=== PATIENT | male | born 2000 | race Caucasian/White ===

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

== ENCOUNTER 2025-05-07 19:38 | Emergency (ER) | payer SELFPAY ==
--- OUTSIDE RECORDS SUMMARY | 2015-03-19 05:22 | XMS_ITS | Continuity of Care Document ---
Author Organization [facility] Address [address] [place] [address] [place] [address] Phone Care Team Providers Care Clinical Data Management Director Name Role Phone Haylie Salinas MD, Alisa Unavailable Unavailable Allergies, Adverse Reactions, Alerts Substance Reaction Status Criticality No Known Allergies Active No Inform ation Medications Medication Instructions Dosage Effective Dates (start - stop) Status Comments No Drug Therapy Prescribed Procedures Procedure Date Im admin 1st/only component No Charge Advance Directives Directive Yes / No Effective Date File Name No Information Encounters Encounter Description Practice Location Reason(s) For Visit Diagnoses Date Provider Providers Copied on Encounter [facility], [address] [place] [address] [place], [id number], [place] tel:[phone] [facility] Vaccine for unspecified combined diseases [address]. [address] [address], [place], [place], [id number], [place]. tel:[phone] Family History Family Member Type Diagnosis Age At Onset No Information Immunizations Vaccine Date Status Comments Meningococcal MCV4O administered Source: New Immunization Record Payers Payer name Insurance type Covered green party ID Authoriza tion(s) No Information Social History Type Description Quantity Date Captured Comments Alcohol Use Details Unknown Caffeine Use Details Unknown Tobacco Use Status No Information Smoking Status No Information Sex Male Vital Signs Date / Time: Height Weight BMI Pulse Rate Blood Pressure Temperature Respiratory Rate Body Surface Area Head Circumference Head Circ. Percentile Wt./Demetri. Percentile BMI percentile Pulse Ox Inhaled Ox 9:29 AM 97.60 F Chief Complaint And Reason For Visit No Information Reason For Referral Reason For Referral No Information History Of Present Illness Encounter Date Complaint History Of Prese nt Illness No Information Functional Status Date Functional Assessmen t No Information Medications Administered Medication Instructions Dosage Effective Dates (start - stop) Status Comments No Drug Therapy Prescribed Instructions Date Instruction Additional Infor mation No Information Assessments Type Assessment Date assessment Vaccine for unspecified combined diseases impression MCV4 Patient Care Teams Name Effective Dates (start - stop) Status Members No Information
--- NOTE | 2025-05-07 19:56 | PC.NURSE ---
name called at this time not in lobby.
[2025-05-07 20:06] VITALS: BP 118/73; PULSE 80; RESP 24; TEMP 36.6; O2SAT 100; BMI 18.2
[2025-05-07 20:20] LABS: Microscopic, Urine URINE MICROSCOPIC (MICROSCOPIC)
[2025-05-07 20:21] LABS: Color,Urine RED (Yellow); Glucose,Urine (UA) Negative (Negative); Ketones,Urine 2+ (Negative); Leukocyte Esterase,Urine TRACE (Negative); PH,Urine 6.5 (5.0-8.5); Protein,Urine 2+ (Negative); Specific Gravity, Urine 1.020 (1.005-1.030); Urobilinogen,Urine 1.0 EU/dl (0.2)
--- NOTE | 2025-05-07 20:26 | CT_ITS ---
PROCEDURE INFORMATION: Exam: CT Abdomen And Pelvis With Contrast Exam date and time: 05/07/2025 8:58 PM Age: 24 years old Clinical indication: Abdominal pain; Flank; Right; Additional info: Right flank pain TECHNIQUE: Imaging protocol: Computed tomography of the abdomen and pelvis with contrast. Radiation optimization: All CT scans at this facility use at least one of these dose optimization techniques: automated exposure control; mA and/or kV adjustment per patient size (includes targeted exams where dose is matched to clinical indication); or iterative reconstruction. Contrast material: ISOVUE; Contrast volume: 75 ml; Contrast route: IV; COMPARISON: No relevant prior studies available. FINDINGS: Liver: Unremarkable. No mass. Gallbladder and biliary ducts: Unremarkable. No calcified stones. No ductal dilation. Pancreas: Unremarkable. No ductal dilation. Spleen: Unremarkable. No splenomegaly. Adrenal glands: Unremarkable. No mass. Kidneys and ureters: Anatomic variant horseshoe kidney. 0.3 cm nonobstructive renal calculus in left moiety. No hydronephrosis. Stomach and bowel: Nonobstructive pattern. Appendix: No evidence of appendicitis. Intraperitoneal space: Unremarkable. No free air. No significant fluid collection. Vasculature: Unremarkable. No abdominal aortic aneurysm. Lymph nodes: Shotty mesenteric lymph nodes with blair mesenteric fat stranding. Urinary bladder: Unremarkable as visualized. Reproductive: Unremarkable as visualized. Bones/joints: Unremarkable. No acute fracture. Soft tissues: Unremarkable. IMPRESSION: 1. Mesenteric panniculitis/lymphangitis. 2. Nonobstructive renal calculus in left horseshoe kidney moiety.
[2025-05-07 20:32] LABS: Hematocrit 42.6 % (42.0-52.0); Hemoglobin 15.0 g/dL (14.1-18.0); Immature Granulocytes % 0.3 %; Mean Corpuscular HGB Conc 35.2 g/dL (31.8-35.4); Mean Corpuscular Hemoglobin 30.1 pg (27.0-31.2); Mean Corpuscular Volume 85.5 fl (80-94); Nucleated Red Blood Cells % 0 %; Platelet Count 290 K/mm3 (142-424); Red Blood Count 4.98 M/mm3 (4.60-6.20); Red Cell Distribution Width-SD 38.1 fL; White Blood Count 11.2 K/mm3 (4.8-10.8)
--- NOTE | 2025-05-07 20:32 | ED_ITS ---
<Statement entered by Blanca Lozoya DO - 05/08/25 01:11> I was consulted by the WAGNER, and we discussed the complexity of problems being addressed. I approve the treatment and management plan for this patient's care in the emergency department, thus performing a substantial portion of the medical decision making. Blanca Lozoya DO Discharge Plan Disposition Patient Disposition: Home, Self-Care Prescriptions Prescriptions: New ketorolac 10 mg tablet 10 mg PO Q8H PRN (Reason: pain) 5 Days Qty: 20 0RF ondansetron 4 mg tablet,disintegrating 4 mg PO Q8H PRN (Reason: nausea and vomiting) 5 Days Qty: 20 0RF clindamycin HCl [Cleocin HCl] 300 mg capsule 300 mg PO Q12H 7 Days Qty: 14 0RF cephalexin 500 mg capsule 500 mg PO BID 10 Days Qty: 20 0RF Referrals Follow up/Referrals: Provider,Referral, MD [Primary Care Provider, Medical] - See instructions Activity Restrictions/Add. Instructions Additional Instructions/Restrictions: Increase fluids and rest. Take meds as directed. Please follow-up with your primary care within the next 2 days for follow-up. If any other problems or concerns please return to the ED immediately. Clinical Impressions Clinical Impression: Abdominal pain, Panniculitis, Urinary tract infection Instructions Patient Instructions: Urinary Tract Infection, DI for Acute Abdominal Pain Print Language Print Language: Kittitian Discharge ED Provider: Blanca Lozoya General Adult HPI <Nan Lezama (ED), [employer]IL TR[employer] - Last Filed: 05/07/25 22:33> General Chief complaint: Abdominal Pain Stated complaint: vomiting,lower back pain , groin pain Time Seen by Provider: 05/07/25 20:21 Mode of Arrival: Wheelchair Source of Information: Patient Description of Symptoms (Recalled from ER Triage Doc. by RN): Pt presents with c/o right flank pain that began approx 1815 today with worsening as time went on. Pt reports pain radiating into groin with dysuria, hematuria and decreased output. Pt reports associated N/V. History of Present Illness HPI narrative: 24-year-old male presents to the ED today for complaint of right flank pain that goes down his right leg into his inguinal area back up his leg and into his back. This started at 1815. He has hematuria. He has nausea, vomiting but no fevers or chills. He says he has no history of kidney stones. No chest pain or shortness of breath. No upper respiratory symptoms. No other symptoms at this time. Related Data Previous Rx's ?Medication ?Instructions ?Recorded cephalexin 500 mg capsule 500 mg PO BID 10 days #20 ca ps 05/07/25 clindamycin HCl 300 mg capsule 300 mg PO Q12H 7 days # 14 caps 05/07/25 (Cleocin HCl) ketorolac 10 mg tablet 10 mg PO Q8H PRN pain 5 days #20 05/07/25 tabs ondansetron 4 mg disintegrating 4 mg PO Q8H PRN nausea and 05/07/25 tablet vomiting 5 days #20 tabs Allergies Allergy/AdvReac Type Severity Reaction Status Date / Time Penicillins (PENICILLINS) Allergy Unknown Other Verified 05/07/25 21:43 PENICILLIN AdvReac Unknown I-RASH Uncoded 07/25/17 15:03 PFS <Nan Lezama (TYESHA), [employer]IL [employer] - Last Filed: 05/07/25 22:33> PFS Disclaimer: The information contained in this section may have been updated after the patient was seen, as this information can be updated by other users. Social History (Updated 05/07/25 @ 22:33 by Nan Lezama (ED), [employer]IL TR[employer]) Smoking Status: Former smoker alcohol intake: former current occupational status: other Travel in the last 8 weeks?: None Have you lived/traveled outside [place] in past 30 days?: No Contact w/someone who lives/traveled outside US past 30 days?: No Exposure to someone with infectious disease in past 14 days?: No Do you have a fever (greater than 100.4 F or 38 C)?: No Have you tested positive for COVID-19?: No Exposed to someone with COVID-19 in past 14 days?: No Do you have a sore throat?: No Do you have a cough?: No Do you have any weakness?: No Do you have any diarrhea?: No Are you experiencing any unusual bleeding?: No Do you have any muscle aches/pain?: No Do you have any abdominal pain?: No Are you experiencing loss of taste or smell?: No <Nan Lezama (ED), [employer]IL TR[employer] - Last Filed: 05/07/25 22:33> ROS Obtained: Yes Systems reviewed as appropriate & no additional complaints except as documented Constitutional Constitutional: Reports as per HPI Physical Exam <Nan Lezama (ED), [employer]IL TR[employer] - Last Filed: 05/07/25 22:33> General General appearance: alert and anxious Head Head exam: atraumatic and normocephalic Eye Eye exam: Present PERRL and EOMI ENT ENT exam: Present normal oropharynx and mucous membranes moist Neck Neck exam: Present full ROM and trachea midline Respiratory Respiratory exam: Present normal lung sounds bilaterally Cardiovascular Cardiovascular exam: Present regular rate, normal rhythm, normal heart sounds, +S1 and +S2 Abdominal Exam Abdominal exam: Present soft and normal bowel sounds Abdominal tenderness: Present RLQ and suprapubic Extremities Exam Extremities exam: Present full ROM and normal capillary refill Back Exam Back exam: Present CVA tenderness (R) Neurological Exam Neurological exam: Present alert and oriented X3 Skin Skin exam: Present warm, dry and intact Medical Decision Making <Nan Lezama (ED), [employer]IL TR[employer] - Last Filed: 05/07/25 22:33> Medical Records Screening: Per USPSTF and CDC recommendations, given the prevalence of disease in our region, it is our hospital?s policy to screen for HIV and viral Hepatitis for all patients aged 18 and over and those with ongoing risk factors. Victor Hugo Inquiry Pt receiving controlled substance: No Victor Hugo was queried for this patient: No Vital Signs: 05/07/25 20:06 05/07/25 22:17 Temperature 97.8 F 98.0 F Temperature Source Oral Temporal Artery Scan Pulse Rate 89 Pulse Rate [Radial] 80 Respiratory Rate 24 15 Blood Pressure 104/64 L Blood Pressure [Right Arm] 118/73 Blood Pressure Mean [Right Arm] 88 Blood Pressure Source Automatic Cuff Blood Pressure Position Sitting Blood Pressure Position [Right Arm] Sitting 02 Sat by Pulse Oximetry 100 Oxygen Delivery Method Room Air Room Air Lab Data Lab Results 05/07/25 20:06: WBC 11.2 H, RBC 4.98, Hgb 15.0, Hct 42.6, MCV 85.5, MCH 30.1, MCHC 35.2, RDW 12.3, Plt Count 290, MPV 10.2, Neut % (Auto) 86.6 H, Lymph % (Auto) 7.6 L, [place] % (Auto) 4.9, Eos % (Auto) 0.3, Baso % (Auto) 0.3, Neut # (Auto) 9.7 H, Lymph # (Auto) 0.9, [place] # (Auto) 0.6, Eos # (Auto) 0.0, Baso # (Auto) 0.0, Sodium 141, Potassium 3.9, Chloride 102, Carbon Dioxide 25, Anion Gap 17.9 H, BUN 20, Creatinine 1.10, Estimated Creat Clear 98, Estimated GFR 81, Est GFR ( Amer) 98, Glucose 119 H, Calcium 9.6, Magnesium 1.8, Total Bilirubin 0.8, AST 28, ALT 28, Alkaline Phosphatase 128 H, Total Protein 7.8, Albumin 4.7, Globulin 3.1, Albumin/Globulin Ratio 1.5, Lipase 41, HCV Ab ASH w/Rflx PCR Qn Negative, HIV Ag/Ab Combo Qual Negative 05/07/25 20:12: Urine Color Red, Urine Appearance Cloudy, Urine pH 6.5, Ur Specific [place] 1.020, Urine Protein 2+ A, Urine Glucose (UA) Negative, Urine Ketones 2+, Urine Blood 3+ A, Urine Nitrate Positive A, Urine Bilirubin Negative, Urine Urobilinogen 1.0, Ur Leukocyte Esterase Trace, Urine RBC Tntc, Urine WBC 10-20, Ur Squamous Epith Cells 5-10, Urine Bacteria 1+, Urine Mucus 1+ 05/07/25 20:06 05/07/25 20:06 Orders (Tests/Meds): ED MEDICATIONS Discontinued Medications Generic Name Dose Route Start Last Admin Trade Name Yehudaq PRN Reason Stop Dose Admin Acetaminophen 1,000 mg 05/07/25 20:26 05/07/25 20:39 Acetaminophen 1,000mg/100ml Vial IV 05/07/25 20:27 1,000 mg ONCE ONE Administration Sodium Chloride 1,000 mls @ 999 mls/hr 05/07/25 20:26 05/07/25 22:18 Sod Chlor 0.9% 1000ml Bag IV 05/07/25 21:26 Infused .Q1H1M ONE Infusion Ceftriaxone Sodium 2 gm/ 100 mls @ 200 mls/hr 05/07/25 21:30 05/07/25 22:18 Sodium Chloride IV 05/17/25 21:29 Infused Q24H MC Infusion Iopamidol 75 ml 05/07/25 20:57 05/07/25 21:00 Iopamidol-370 (76%);100ml Bottle IV 05/07/25 20:58 75 ml ONCE ONE Administration Ketorolac Tromethamine 30 mg 05/07/25 20:26 05/07/25 20:39 Ketorolac 30mg/Ml Vial IV 05/07/25 20:27 30 mg ONCE ONE Administration Ondansetron HCl 4 mg 05/07/25 20:26 05/07/25 20:46 Ondansetron 4mg/2ml Vial IV 05/07/25 20:27 4 mg ONCE ONE Administration Sodium Chloride 10 ml 05/07/25 20:57 05/07/25 21:00 Sodium Chloride 0.9% 10ml Syr (Rad Only) IV 05/07/25 20:58 10 ml ONCE ONE Administration ORDERS Category Date Time Status CT abdomen pelvis w con Stat Cat Scan 05/07/25 20:26 Completed CBC [Complete Blood Count Auto Diff] Stat Lab 05/07/25 20:06 Completed Comprehensive Metabolic Panel Stat Lab 05/07/25 20:06 Completed HIV Combo Stat Lab 05/07/25 20:06 Completed Hepatitis C Ab Qual. W/ RFX Stat Lab 05/07/25 20:06 Completed Lipase Stat Lab 05/07/25 20:06 Completed Magnesium Stat Lab 05/07/25 20:06 Completed UA [Urinalysis and Microscopic] Stat Lab 05/07/25 20:12 Completed Urine Culture Stat Micro 05/07/25 20:12 Received Medical Decision Narrative: patient is a 24-year-old male presenting to the emergency department for evaluation of right flank pain that moves down his leg into his inguinal area and back up into his low back. Patient is hemodynamically stable and nontoxic- appearing upon arrival, afebrile. Differential diagnosis includes kidney stone, appendicitis, hernia among others. Workup will be conducted with hematologic labs, specific imaging. Initial inventions include crystalloid bolus, analgesics. Initial workup reviewed by me [hematologic labs are remarkable for white count of 11.2 urine 3+ blood, nitrite positive, we gave a gram of Rocephin here in the ED this was Dr. Lozoya's order. Patient CT scan showed mesenteric. Lymphangitis. Patient with improved symptoms with Toradol, Zofran and Tylenol pain. Patient will be discharged with medications. He will follow-up with his PCP this week. <Blanca Lozoya, DO - Last Filed: 05/08/25 01:11> Vital Signs: 05/07/25 20:06 05/07/25 22:17 Temperature 97.8 F 98.0 F Temperature Source Oral Temporal Artery Scan Pulse Rate 89 Pulse Rate [Radial] 80 Respiratory Rate 24 15 Blood Pressure 104/64 L Blood Pressure [Right Arm] 118/73 Blood Pressure Mean [Right Arm] 88 Blood Pressure Source Automatic Cuff Blood Pressure Position Sitting Blood Pressure Position [Right Arm] Sitting 02 Sat by Pulse Oximetry 100 Oxygen Delivery Method Room Air Room Air Lab Data Lab results reviewed: Yes I reviewed the patient's lab results. Lab Results 05/07/25 20:06: WBC 11.2 H, RBC 4.98, Hgb 15.0, Hct 42.6, MCV 85.5, MCH 30.1, MCHC 35.2, RDW 12.3, Plt Count 290, MPV 10.2, Neut % (Auto) 86.6 H, Lymph % (Auto) 7.6 L, [place] % (Auto) 4.9, Eos % (Auto) 0.3, Baso % (Auto) 0.3, Neut # (Auto) 9.7 H, Lymph # (Auto) 0.9, [place] # (Auto) 0.6, Eos # (Auto) 0.0, Baso # (Auto) 0.0, Sodium 141, Potassium 3.9, Chloride 102, Carbon Dioxide 25, Anion Gap 17.9 H, BUN 20, Creatinine 1.10, Estimated Creat Clear 98, Estimated GFR 81, Est GFR ( Amer) 98, Glucose 119 H, Calcium 9.6, Magnesium 1.8, Total Bilirubin 0.8, AST 28, ALT 28, Alkaline Phosphatase 128 H, Total Protein 7.8, Albumin 4.7, Globulin 3.1, Albumin/Globulin Ratio 1.5, Lipase 41, HCV Ab ASH w/Rflx PCR Qn Negative, HIV Ag/Ab Combo Qual Negative 05/07/25 20:12: Urine Color Red, Urine Appearance Cloudy, Urine pH 6.5, Ur Specific [place] 1.020, Urine Protein 2+ A, Urine Glucose (UA) Negative, Urine Ketones 2+, Urine Blood 3+ A, Urine Nitrate Positive A, Urine Bilirubin Negative, Urine Urobilinogen 1.0, Ur Leukocyte Esterase Trace, Urine RBC Tntc, Urine WBC 10-20, Ur Squamous Epith Cells 5-10, Urine Bacteria 1+, Urine Mucus 1+ Orders (Tests/Meds): ED MEDICATIONS Discontinued Medications Generic Name Dose Route Start Last Admin Trade Name Yehudaq PRN Reason Stop Dose Admin Acetaminophen 1,000 mg 05/07/25 20:26 05/07/25 20:39 Acetaminophen 1,000mg/100ml Vial IV 05/07/25 20:27 1,000 mg ONCE ONE Administration Sodium Chloride 1,000 mls @ 999 mls/hr 05/07/25 20:26 05/07/25 22:18 Sod Chlor 0.9% 1000ml Bag IV 05/07/25 21:26 Infused .Q1H1M ONE Infusion Ceftriaxone Sodium 2 gm/ 100 mls @ 200 mls/hr 05/07/25 21:30 05/07/25 22:18 Sodium Chloride IV 05/17/25 21:29 Infused Q24H MC Infusion Iopamidol 75 ml 05/07/25 20:57 05/07/25 21:00 Iopamidol-370 (76%);100ml Bottle IV 05/07/25 20:58 75 ml ONCE ONE Administration Ketorolac Tromethamine 30 mg 05/07/25 20:26 05/07/25 20:39 Ketorolac 30mg/Ml Vial IV 05/07/25 20:27 30 mg ONCE ONE Administration Ondansetron HCl 4 mg 05/07/25 20:26 05/07/25 20:46 Ondansetron 4mg/2ml Vial IV 05/07/25 20:27 4 mg ONCE ONE Administration Sodium Chloride 10 ml 05/07/25 20:57 05/07/25 21:00 Sodium Chloride 0.9% 10ml Syr (Rad Only) IV 05/07/25 20:58 10 ml ONCE ONE Administration ORDERS Category Date Time Status CT abdomen pelvis w con Stat Cat Scan 05/07/25 20:26 Completed CBC [Complete Blood Count Auto Diff] Stat Lab 05/07/25 20:06 Completed Comprehensive Metabolic Panel Stat Lab 05/07/25 20:06 Completed HIV Combo Stat Lab 05/07/25 20:06 Completed Hepatitis C Ab Qual. W/ RFX Stat Lab 05/07/25 20:06 Completed Lipase Stat Lab 05/07/25 20:06 Completed Magnesium Stat Lab 05/07/25 20:06 Completed UA [Urinalysis and Microscopic] Stat Lab 05/07/25 20:12 Completed Urine Culture Stat Micro 05/07/25 20:12 Received Medical Decision Narrative: patient is a 24-year-old male presenting to the emergency department for evaluation of right flank pain that moves down his leg into his inguinal area and back up into his low back. Patient is hemodynamically stable and nontoxic- appearing upon arrival, afebrile. Differential diagnosis includes kidney stone, appendicitis, hernia, UTI, amongst others. Workup will be conducted with hematologic labs, specific imaging. Initial inventions include crystalloid bolus, analgesics. Initial workup reviewed by me: CBC showed a mild leukocytosis of 11 but hemoglobin stable. CMP unremarkable. UA with blood, nitrite +1+ bacteria and white blood cells. We gave a gram of Rocephin here in the ED. Patient CT scan showed mesenteric lymphangitis. Patient with improved symptoms with Toradol, Zofran and Tylenol pain. Patient will be discharged with medications including antibiotics. He will follow-up with his PCP this week. Critical Care <Nan Lezama (ED), [employer]IL TR[employer] - Last Filed: 05/07/25 22:33> Critical Care Time Critical Care Time: No
[2025-05-07 20:35] LABS: Bilirubin,Urine Negative (Negative)
[2025-05-07 20:38] LABS: Alanine Aminotransferase 28 U/L (12-78); Albumin Level 4.7 g/dl (3.5-5.0); Albumin/Globulin Ratio 1.5 (1.1-1.8); Alkaline Phosphatase 128 U/L (38-126); Anion Gap 17.9 mEq/L (5-15); Aspartate Amino Transferase 28 U/L (17-59); Bilirubin,Total 0.8 mg/dl (0.2-1.3); Blood Urea Nitrogen 20 mg/dl (9-20); Calcium 9.6 mg/dl (8.4-10.2); Carbon Dioxide 25 mmol/L (22.0-30.0); Chloride 102 mmol/L (98-107); Creatinine Clearance Estimated 98 mL/min (50-200); Creatinine,Serum 1.10 mg/dl (0.66-1.25); Estimated Glomerular Filt Rate 81 ml/min (>60); GFR (African American) 98 ML/MIN (>60); Globulin 3.1 g/dL (1.3-3.2); Glucose 119 mg/dl (74-100); Lipase 41 U/L (23-300); Magnesium 1.8 mg/dl (1.6-2.3); Potassium 3.9 mmoL/L (3.5-5.1); Sodium 141 mmol/L (136-145); Total Protein,Serum 7.8 g/dl (6.3-8.2)
[2025-05-07] MEDS: KETOROLAC 30MG/ML VIAL 30 MG IV (20:39)
[2025-05-07] MEDS: ACETAMINOPHEN 1,000MG/100ML VIAL 1000 MG IV (20:39)
[2025-05-07] MEDS: 0.9 % SODIUM CHLORIDE 1000ML 1,000 ML 999 ML IV (20:39)
[2025-05-07 20:44] LABS: Bacteria,Urine 1+ /lpf; Mucus,Urine 1+ /lpf; RBC,Urine TNTC #/hpf (0-3)
[2025-05-07] MEDS: ONDANSETRON 4MG/2ML VIAL 4 MG IV (20:46)
[2025-05-07] MEDS: SODIUM CHLORIDE 0.9% 10ML SYR (RAD ONLY) 10 ML IV (21:00)
[2025-05-07] MEDS: IOPAMIDOL-370 (76%);100ML BOTTLE 75 ML IV (21:00)
--- NOTE | 2025-05-07 21:11 | PC.NURSE ---
Pt awake alert and oriented Skin pale warm and dry Resp full and easy Speech clear and appropriate IV site without redness or edema
[2025-05-07 21:53] LABS: Hepatitis C Ab Qual. W/ RFX NEGATIVE (Negative)
[2025-05-07 22:17] VITALS: BP 104/64; PULSE 89; RESP 15; TEMP 36.7; O2SAT 100
== END 2025-05-07 22:18 | disposition home or self-care (01) ==
PROVIDERS: Nurse Practitioner; Emergency Provider Student in an Organized Health Care Education/Training Program
DX: R10.31 Right lower quadrant pain (principal); N39.0 Urinary tract infection, site not specified; R31.9 Hematuria, unspecified; I88.0 Nonspecific mesenteric lymphadenitis
CPT/HCPCS: 74177; 80053; 81001; 83690; 83735; 85025; 86803; 87086; 87389; 96361; 96365; 96375; 99284; J0131; J0696; J1885; J2405; J7030; Q9967